=== PATIENT | female | born 1990 | race Caucasian/White ===

== ENCOUNTER 2016-05-04 03:47 | Inpatient (IN) | payer BC ==
[~2016-05-04 03:47] MED LIST: BUPIVACAINE (PF) 0.25% 30 ML VIAL ONE; SODIUM CHLORIDE 0.9% 100 ML BAG ONE; fentaNYL (PF) 50 MCG/ML 5 ML AMP ONE
[2016-05-04] MEDS ORDERED: TERBUTALINE 1 MG/ML VIAL SQ PRN (05:05)
[2016-05-04] MEDS ORDERED: CARBOPROST TROMETHAMINE 250 MCG/ML 1 ML AMP IM PRN (05:05)
[2016-05-04] MEDS ORDERED: METHYLERGONOVINE 0.2 MG/ML 1 ML AMP IM PRN (05:05)
[2016-05-04] MEDS ORDERED: OXYTOCIN 10 UNIT/ML 1 ML VIAL IM PRN (05:05)
[2016-05-04] MEDS ORDERED: LIDOCAINE 1% (PF) 10 MG/ML (30 ML SDV) SQ PRN (05:05)
[2016-05-04 05:29] VITALS: BMI 25.9
[2016-05-04 05:36] LABS: Basophils % (A) 0 %; CH 32.3; CHCM 35.3; Eosinophils % (A) 0 %; HCT 44.2 % (34.0-46.0); HDW 2.74; Luc # (Auto) 0.15; Luc % (Auto) 1; Lymphocytes # (A) 1.7 k/uL (1.0-4.8); Lymphocytes % (A) 15 %; MCH 31.2 pg (25.0-35.0); MCHC 33.9 g/dL (31.0-37.0); MCV 91.9 fL (80.0-100.0); Mean Platelet Volume 8.2; Monocytes # (A) 0.4 k/uL (0-1.0); Monocytes % (A) 4 %; Neutrophils % (A) 79 %; RBC 4.81 m/uL (3.80-5.40); RDW 13.5 % (11.5-15.5); WBC 11.3 k/uL (3.8-10.6); WBC (Perox) 11.76
[2016-05-04] MEDS: LACTATED RINGERS 1,000 ML IV SCH ×3 (05:36→10:00)
[2016-05-04] MEDS ORDERED: BUTORPHANOL 1 MG/ML 1 ML VIAL IV PRN (05:47)
--- NOTE | 2016-05-04 07:48 | P.HPOB ---
History of Present Illness H&P Date: 05/04/16 Chief Complaint: Strong regular uterine contractions This is a 25-year-old white female 1 para 0 EDC 05/12/2015 at 38-6/7 weeks' gestation. Patient presented through the night with strong regular uterine contractions, cervical change was noted while observing in the triage area. She denies fluid leakage or vaginal bleeding. Fetus is been active throughout the . She denies headache, visual changes or right upper quadrant pain. Past obstetric history: Blood type O positive, rubella status immune. VDRL testing, urine culture, gonorrhea Chlamydia cultures, hepatitis B surface antigen, HIV testing all negative. Group B strep cultures negative. One-hour Glucola 97. Past medical history is essentially negative. Past surgical history is significant for exploratory laparotomy, appendectomy. Current medications vitamins daily. ALLERGIES penicillin, patient reports a strong family history of ALLERGY only, Bactrim DS to which patient reports hives. Family history significant for adenocarcinoma in her maternal aunt, breast cancer in a maternal grandmother, type 1 diabetes in her cousin. 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 She denies alcohol or drug use. On exam this is a pleasant white female, 5 foot 5 inches, 156 pounds, vital signs are stable and the patient is afebrile. The general physical exam is within normal limits. The chest is clear in all matthews. The extremities reveal no edema. Cervix is 6 cm dilated, 80% effaced, -1 station, vertex presentation. Artificial amniorrhexis reveals clear fluid. heart rate is consistent with reactive NST. Impression: 6/7 weeks intrauterine , active spontaneous labor. All signs reassuring. Plan: Close maternal and surveillance. Epidural has been placed per the patient's request. Consider oxytocin augmentation pending progress. Anticipate normal spontaneous vaginal delivery. Review of Systems Negative except as in HPI Past Medical History Additional Past Medical History / Comment(s): kidney stones, endometriosis History of Any Multi-Drug Resistant Organisms: None Reported Past Surgical History: Appendectomy Additional Past Surgical History / Comment(s): laproscopy Past Anesthesia/Blood Transfusion Reactions: No Reported Reaction Past Psychological History: No Psychological Hx Reported Smoking Status: Never smoker Past Alcohol Use History: Occasional Past Drug Use History: None Reported - Past Family History Father Family Medical History: No Reported History Medications and Allergies Home Medications Medication Instructions Recorded Confirmed Type #79/Iron Asp Gly/FA#1 1 each PO DAILY 05/04/16 05/04/16 History [Prenate Elite Tablet] Allergies Allergy/AdvReac Type Severity Reaction Status Date / Time Penicillins Allergy Rash/Hives Verified 05/04/16 04:01 sulfamethoxazole Allergy Rash/Hives Verified 05/04/16 04:01 [From Bactrim] trimethoprim [From Bactrim] Allergy Rash/Hives Verified 05/04/16 04:01 Exam - Vital Signs Vital signs: Vital Signs Temp Pulse Resp BP Pulse Ox 05/04/16 05:21 96.7 F L 85 18 131/86 97 Intake and Output 05/03/16 05/04/16 05/04/16 22:59 06:59 14:59 Intake Total 1000 Balance 1000 Intake: IV 1000 Lactated Ringers 1,000 ml 1000 @ 125 mls/hr IV .Q8H CHARMAINE Rx#:[id number] Other: # Voids 2 Weight 70.76 kg See my dictation, please Results Result Diagrams: 05/04/16 05:28 Abnormal Lab Results - Last 24 Hours (Table) 05/04/16 Range/Units 05:28 WBC 11.3 H (3.8-10.6) k/uL Neutrophils # 9.0 H (1.3-7.7) k/uL Assessment and Plan Plan: Close maternal and surveillance. Epidural has been placed per the patient 's wishes. Consider oxytocin augmentation pending progress. Anticipate normal spontaneous vaginal delivery. Time with Patient: Less than 30
[2016-05-04] MEDS ORDERED: OXYTOCIN 30 UNITS/500 ML NS 30 UNIT in SALINE 1 500ML.BAG IV SCH (08:45)
[2016-05-04] MEDS ORDERED: BUPIVACAINE (PF) 0.25% 25 ML, fentaNYL (PF) 200 MCG in SODIUM CHLORIDE 0.9% 71 ML EPIDURAL ONE (10:54)
[2016-05-04] MEDS ORDERED: diphenhydrAMINE ELIXIR 25 MG/10 ML CUP PO PRN (11:10)
[2016-05-04] MEDS ORDERED: HYDROCORTISONE 2.5% RECTAL CREAM 30 GM TUBE RECTAL PRN (11:10)
[2016-05-04] MEDS ORDERED: BENZOCAINE/MENTHOL SPRAY 1 GM/SPRAY AEROSOL TOPICAL PRN (11:10)
[2016-05-04] MEDS ORDERED: WITCH HAZEL 1 EACH MED..PAD TOPICAL PRN (11:10)
[2016-05-04] MEDS ORDERED: diphenhydrAMINE 50 MG CAP PO PRN (11:10)
[2016-05-04] MEDS ORDERED: ZOLPIDEM 5 MG TAB PO PRN (11:10)
[2016-05-04] MEDS ORDERED: ACETAMINOPHEN TAB 325 MG TAB PO PRN (11:10)
[2016-05-04] MEDS ORDERED: Acetaminophen-Codeine 300-30mg TAB PO PRN (11:10)
[2016-05-04] MEDS ORDERED: diphenhydrAMINE 25 MG CAP PO PRN (11:10)
[2016-05-04] MEDS ORDERED: IBUPROFEN 600 MG TAB PO PRN (11:10)
[2016-05-04] MEDS ORDERED: SIMETHICONE 80 MG CHEWABLE PO PRN (11:10)
[2016-05-04] MEDS ORDERED: LANOLIN CREAM 5 GM TUBE TOPICAL PRN (11:10)
[2016-05-04] MEDS ORDERED: diphenhydrAMINE 50 MG/ML 1 ML VIAL IVP PRN ×2 (11:10)
--- NOTE | 2016-05-04 11:10 | P.PROBDLV ---
Vaginal Delivery Note - . Vaginal Delivery Note: This is a 25-year-old white female 1 para 0 EDC 05/12/2015 at 38-6/7 weeks' gestation. Patient presented in early spontaneous labor. Artificial amniorrhexis revealed clear fluid. Epidural was placed per her request. Please see my dictated history and physical for details. Patient became completely dilated at 1020 hrs. and began the second stage of labor at that time. Deep variable decelerations were noted. Oxygen was placed per facemask. IV fluid increase. Maternal position changes incorporating. Good progress in the second stage was noted. Ultimately the perineal body was prepped and draped in usual sterile fashion. A left medial lateral episiotomy was given. 's head delivered right occiput posterior. There was a tight nuchal cord 1 that was reduced. The oropharynx, nasopharynx, and external nares were all bulb suctioned on the perineal body. Patient was officially delivered of a liveborn male at 1059 hrs. The umbilical cord was doubly clamped and ligated, he was handed to waiting nurses for evaluation where scores of 8 and 9 at one and 5 minutes respectively were given. Placenta delivered spontaneously, it was inspected and noted to be intact, slightly bloody down the maternal surface, at 2000 hours. Uterus was massaged. Inspection of the cervix, vagina, perineum, and periurethral areas revealed no other extensions. The left medial lateral episiotomy was repaired in the usual fashion using 3-0 Vicryl suture. Excellent reapproximation was noted. Fundus is firm and in the midline, symmetric and 18 week size upon completion of delivery. All sponge needle and enhancement counts are correct. Estimated blood loss 300 mL's. Patient and her are requesting circumcision further son.
[2016-05-04] MEDS: OXYTOCIN 30 UNITS/500 ML NS 30 UNIT in SALINE 1 500ML.BAG IV SCH ×2 (12:06→22:24)
[2016-05-04] MEDS: SENNOSIDES-DOCUSATE SODIUM 1 EACH TAB PO SCH (20:47)
--- NOTE | 2016-05-05 08:01 | P.DS ---
Providers Date of admission: 05/04/16 05:06 Expected date of discharge: 05/05/16 Attending physician: Meredith Uribe Primary care physician: Stated None Hospital Course: This is a 19 year old white female 1 para 0 EDC 05/12/2015 at 38-6/7 weeks' gestation. Patient presented in active spontaneous labor. Epidural was placed per her request. She went on to deliver a liveborn male with scores of 8 and 9 at one and 5 minutes respectively. Infant was in the right occiput posterior position. Deep variable decelerations were noted in the second stage with excellent overall variability. For that reason, a left medial lateral episiotomy was performed, and repaired without issue. weighed 3310 g or 7 lbs. 5 oz. Please see my dictated delivery note for details. This morning the patient is doing very well. She is voiding, ambulating and passing flatus without difficulty. Vital signs are stable and she is afebrile. Fundus is firm and in the midline, symmetric and 18 week size. Extremities are negative. Breasts are not engorged. Breast-feeding is going well. [place] circumcision has been performed without issue. Patient is being discharged home in good condition. She will follow-up with me in the office in 6 weeks. I reminded her no intercourse, tampons or douching. She will continue taking her vitamin daily. She will use over-the- counter ibuprofen products, 200 mg pills, 600 mg every 6 hours as needed for pain. We have briefly reviewed her options for contraception. I have reminded her to call me with any fevers shakes or chills, foul smelling or copious lochia , with the passage of large blood clots, with any pain not alleviated by over- the-counter products, or indeed with any concerns. Patient Condition at Discharge: Good Plan - Discharge Summary Discharge Medication List #79/Iron Asp Gly/FA#1 [Prenate Elite Tablet] 1 each PO DAILY 05/04/16 [ History] Follow up Appointment(s)/Referral(s): Meredith Uribe MD [STAFF PHYSICIAN] - 6 Weeks Discharge Disposition: HOME SELF-CARE
[2016-05-05] MEDS: SENNOSIDES-DOCUSATE SODIUM 1 EACH TAB PO SCH (08:22)
[2016-05-05 10:36] VITALS: BP 115/74; PULSE 81; RESP 16; TEMP 97.7
== END 2016-05-05 14:35 | disposition home or self-care (01) | DRG 775 ==
LOC: FBPOP 03:47 → 4FBP 05:06
PROVIDERS: ADMIT Obstetrics & Gynecology; ATTEND Obstetrics & Gynecology
PROC: 10E0XZZ Delivery of Products of Conception, External Approach (ICD-10-PCS; principal; 2016-05-04)
PROC: 0W8NXZZ Division of Female Perineum, External Approach (ICD-10-PCS; 2016-05-04)
DX: O69.1XX0 Labor and delivery complicated by cord around neck, with compression, not applicable or unspecified (principal); O76 Abnormality in fetal heart rate and rhythm complicating labor and delivery; Z37.0 Single live birth; Z87.442 Personal history of urinary calculi; Z88.0 Allergy status to penicillin; Z79.899 Other long term (current) drug therapy
CPT/HCPCS: 59025; 85025; 88307; 99213

== ENCOUNTER 2018-11-08 17:58 | Inpatient (IN) | payer BC ==
[2018-11-08] MEDS ORDERED: WITCH HAZEL 1 EACH MED..PAD TOPICAL PRN (18:19)
[2018-11-08] MEDS ORDERED: ZOLPIDEM 5 MG TAB PO PRN (18:19)
[2018-11-08] MEDS ORDERED: diphenhydrAMINE 25 MG CAP PO PRN (18:19)
[2018-11-08] MEDS ORDERED: SIMETHICONE 80 MG CHEWABLE PO PRN (18:19)
[2018-11-08] MEDS ORDERED: ACETAMINOPHEN TAB 325 MG TAB PO PRN (18:19)
[2018-11-08] MEDS ORDERED: HYDROcodone/APAP 7.5-325MG 1 EACH TAB PO PRN (18:19)
[2018-11-08] MEDS ORDERED: LANOLIN CREAM 5 GM TUBE TOPICAL PRN (18:19)
[2018-11-08] MEDS ORDERED: diphenhydrAMINE 50 MG CAP PO PRN (18:19)
[2018-11-08] MEDS ORDERED: BENZOCAINE/MENTHOL SPRAY 1 GM/SPRAY AEROSOL TOPICAL PRN (18:19)
[2018-11-08] MEDS ORDERED: HYDROCORTISONE 2.5% RECTAL CREAM 30 GM TUBE RECTAL PRN (18:19)
[2018-11-08] MEDS ORDERED: diphenhydrAMINE 50 MG/ML 1 ML VIAL IVP PRN ×2 (18:19)
--- NOTE | 2018-11-08 18:25 | P.HPOB ---
History of Present Illness H&P Date: 11/08/18 Chief Complaint: 38-5/7 weeks, active labor, rupture of membranes The patient is a 28-year-old 2 para 1001 admitted at 38-5/7 weeks by good dating parameters. She is admitted to triage after transport from home by EMS in active labor with spontaneous rupture of membranes and found at that time to have dilation to anterior lip. I was called at that time and arrived after the infant had been delivered. Her has been entirely uncomplicated and group B strep status is negative. Obstetrical history: 2 para 1001 with 1 previous term vaginal delivery without complications. Current statistics are listed in history of present illness. EDC of 11/17/2018 was established by early ultrasound. Laboratory workup demonstrates a blood type of O+ with a negative antibody screen. Rubella status is immune. Remainder of the laboratory workup was within normal limits. One hour Glucola was normal and group B strep status is negative. Gynecologic history: Unremarkable with no history of any infections to include STDs. Review of Systems Review of systems is confined to history of present illness. Past Medical History Additional Past Medical History / Comment(s): kidney stones, endometriosis History of Any Multi-Drug Resistant Organisms: None Reported Past Surgical History: Appendectomy Additional Past Surgical History / Comment(s): laproscopy Past Anesthesia/Blood Transfusion Reactions: No Reported Reaction Past Psychological History: No Psychological Hx Reported Smoking Status: Never smoker Past Alcohol Use History: Occasional Past Drug Use History: None Reported - Past Family History Father Family Medical History: No Reported History Medications and Allergies Home Medications Medication Instructions Recorded Confirmed Type 114/Iron A-G/Folate 1 1 each PO DAILY 05/04/16 05/04/16 History [Prenate Elite Tablet] Allergies Allergy/AdvReac Type Severity Reaction Status Date / Time Penicillins Allergy Rash/Hives Verified 05/04/16 04:01 sulfamethoxazole Allergy Rash/Hives Verified 05/04/16 04:01 [From Bactrim] trimethoprim [From Bactrim] Allergy Rash/Hives Verified 05/04/16 04:01 Exam In general, this is a well-developed, well-nourished white female in no current distress though the placenta was undelivered. Her heart has a regular rhythm and rate without murmur. Her lungs are clear to auscultation bilaterally in all matthews. Her abdomen is nondistended with palpable fundus below the umbilicus, normal active bowel sounds, is soft, nontender, and without any palpable masses aside from the uterine fundus as noted above. Her extremities without any cyanosis, clubbing, or edema and are nontender to palpation bilaterally. Pelvic examination is deferred as the placenta as yet to be delivered. Assessment and Plan (1) Spontaneous rupture of amniotic membranes Current Visit: Yes Status: Acute Code(s): QAW7709 - SNOMED Code(s): 761213484 (2) Active labor at term Current Visit: Yes Status: Acute Code(s): MIT6246 - SNOMED Code(s): 44934078 Plan: The patient will be admitted from triage for routine care.
--- NOTE | 2018-11-08 18:27 | P.PROBDLV ---
Vaginal Delivery Note - . Vaginal Delivery Note: The patient is a 28-year-old 2 para 1001 admitted at 38-5/7 weeks by good dating parameters. She is admitted in active labor and dilated to an anterior lip in triage with documented spontaneous rupture of membranes. Her has been uncomplicated and group B strep status is negative. I was called upon admission to triage and, upon arrival, the had been delivered by the nursing staff in a precipitous fashion. She delivered by precipitous normal spontaneous vaginal delivery of viable 7 lbs. 1 oz. baby girl with Apgars of 9 at 1 minute and 9 at 5 minutes. The placenta was delivered spontaneously, intact, and grossly normal with a grossly normal, relatively centrally inserted three-vessel cord. There were no lacerations of the perineum, vagina, or cervix. All sponge, instrument, and needle counts were correct. Estimated blood loss appeared to be approximately 200 mL. There were no complications aside from the precipitous nature of the delivery in the absence of a physician. Both mother and infant are resting comfortably in recovery.
[2018-11-08] MEDS ORDERED: OXYTOCIN 20 UNITS/1000 ML NS 1,000 ML IV SCH (18:30)
[2018-11-08 19:24] VITALS: BMI 29.1
[2018-11-08] MEDS: IBUPROFEN 600 MG TAB PO PRN (19:47)
[2018-11-08] MEDS: SENNOSIDES-DOCUSATE SODIUM 1 EACH TAB PO SCH (20:41)
[2018-11-09] MEDS: IBUPROFEN 600 MG TAB PO PRN ×2 (07:02→16:00)
[2018-11-09] MEDS: SENNOSIDES-DOCUSATE SODIUM 1 EACH TAB PO SCH (07:03)
[2018-11-09] MEDS: HYDROcodone/APAP 5-325MG 1 EACH TAB PO PRN ×2 (08:26→14:01)
--- NOTE | 2018-11-09 08:56 | P.DS ---
Providers Date of admission: 11/08/18 17:58 Expected date of discharge: 11/09/18 Attending physician: Shiraz Guerra Primary care physician: Stated None - Discharge Diagnosis(es) (1) Spontaneous rupture of amniotic membranes Current Visit: Yes Status: Acute (2) Active labor at term Current Visit: Yes Status: Acute (3) Precipitous delivery Current Visit: Yes Status: Acute Hospital Course: The patient is a 28-year-old 2 para 1001 admitted at 38-5/7 weeks by good dating parameters. She is admitted to triage in active labor and dilated to anterior lip with spontaneous rupture of membranes. The patient then had a normal spontaneous vaginal delivery of a viable 7 lbs. 1 oz. baby girl with Apgars of 9 at 1 minute and 9 at 5 minutes while I was en route to the hospital. The delivery, aside from its precipitous nature, was otherwise uncomplicated. The patient's course was uncomplicated and vital signs were stable throughout. She was deemed stable for discharge on day #1 was disch arged home to follow-up in the office in 6 weeks' time routinely. Discharge instructions included calling for any significantly increased bleeding or foul- smelling lochia, significantly increased fever abdominal pain, perineal complaints, breast complaints, or anything else that concerned her. She is additionally instructed to have nothing in the vagina for at least 6 weeks time to include intercourse. She understood her instructions and agrees to follow up as noted above. Discharge medications included continued vitamins as she has opted to breast-feed. She otherwise was to use [id number] analgesic pain medications as needed. Maternal blood type is O+ and rubella status is immune. Procedures: #1. Precipitous normal spontaneous vaginal delivery Patient Condition at Discharge: Good Plan - Discharge Summary Discharge Rx Participant: No New Discharge Prescriptions: No Action 114/Iron A-G/Folate 1 [Prenate Elite Tablet] 1 each PO DAILY Discharge Medication List 114/Iron A-G/Folate 1 [Prenate Elite Tablet] 1 each PO DAILY 05/04/16 [History] Follow up Appointment(s)/Referral(s): Meredith Uribe MD [STAFF PHYSICIAN] - 6 Weeks Discharge Disposition: HOME SELF-CARE
[2018-11-09 16:12] VITALS: BP 120/72; PULSE 79; RESP 18; TEMP 98
== END 2018-11-09 19:00 | disposition home or self-care (01) | DRG 807 ==
LOC: 4FBP 17:58
PROVIDERS: ADMIT Obstetrics & Gynecology; ATTEND Obstetrics & Gynecology
PROC: 10E0XZZ Delivery of Products of Conception, External Approach (ICD-10-PCS; principal; 2018-11-08)
DX: O62.3 Precipitate labor (principal); Z37.0 Single live birth; Z3A.38 38 weeks gestation of pregnancy; Z87.442 Personal history of urinary calculi; Z88.0 Allergy status to penicillin; Z88.2 Allergy status to sulfonamides

== ENCOUNTER → 2020-04-15 | Outpatient (CLI) | payer BC, OTHER ==
[2020-04-15 15:45] LABS: Basophils % (A) 1 %; Eosinophils # (A) 0.2 k/uL (0-0.7); Eosinophils % (A) 2 %; HGB 14.2 gm/dL (11.4-16.0); Lymphocytes # (A) 2.4 k/uL (1.0-4.8); Lymphocytes % (A) 36 %; MCH 31.6 pg (25.0-35.0); MCHC 34.6 g/dL (31.0-37.0); MCV 91.4 fL (80.0-100.0); Mean Platelet Volume 7.1; Monocytes # (A) 0.4 k/uL (0-1.0); Monocytes % (A) 6 %; Neutrophils # (A) 3.7 k/uL (1.3-7.7); Neutrophils % (A) 54 %; Platelet Count 226 k/uL (150-450); RBC 4.48 m/uL (3.80-5.40); RDW 11.7 % (11.5-15.5); WBC 6.8 k/uL (3.8-10.6)
== END | disposition home or self-care (01) ==
LOC: LABPAT 15:07
PROVIDERS: ATTEND Obstetrics & Gynecology
DX: Z01.818 Encounter for other preprocedural examination (principal)
CPT/HCPCS: 36415; 85025

== ENCOUNTER 2020-05-05 08:38 | Day surgery (SDC) | payer BC, OTHER ==
[2020-04-30 14:19] VITALS: BMI 27.4
[~2020-05-05 08:38] MED LIST changes: -BUPIVACAINE (PF) 0.25% 30 ML VIAL ONE; +DEXAMETHASONE SOD PHOSPHATE 4 MG/ML 1 ML VIAL IV ONE; +LACTATED RINGERS 1,000 ML IV SCH; +MIDAZOLAM 2 MG/2 ML VIAL IV PRN; +ONDANSETRON 4 MG/2 ML VIAL IVP ONE; +Pre Op ABX Message 1 EACH MISC MISCELLANE ONE; +SCOPOLAMINE 1.5MG/72HR PATCH TRANSDERM ONE; -SODIUM CHLORIDE 0.9% 100 ML BAG ONE; -fentaNYL (PF) 50 MCG/ML 5 ML AMP ONE
[2020-05-05] MEDS ORDERED: LIDOCAINE 1% (10MG/ML) FOR IV START INTRADERMA ONE (09:11)
[2020-05-05] MEDS ORDERED: NEOSTIGMINE 1 MG/ML 10 ML VIAL ONE (10:10)
[2020-05-05] MEDS ORDERED: SUCCINYLCHOLINE CHLORIDE 100 MG/5 ML SYR IV ONE (10:10)
[2020-05-05] MEDS ORDERED: LIDOCAINE 1% INJ 10MG/ML (20 ML MDV) ONE (10:10)
[2020-05-05] MEDS ORDERED: KETOROLAC 15 MG/ML 1 ML VIAL ONE (10:10)
[2020-05-05] MEDS ORDERED: PROPOFOL 10 MG/ML 20 ML VIAL IV ONE (10:10)
[2020-05-05] MEDS ORDERED: diphenhydrAMINE 50 MG/ML 1 ML VIAL ONE (10:10)
[2020-05-05] MEDS ORDERED: GLYCOPYRROLATE 0.2 MG/ML 2 ML VIAL ONE (10:10)
[2020-05-05] MEDS ORDERED: ROCURONIUM 10 MG/ML (10 ML VIAL) IV ONE (10:10)
[2020-05-05] MEDS ORDERED: fentaNYL (PF) 50 MCG/ML 2 ML AMP ONE (10:10)
[2020-05-05] MEDS ORDERED: MIDAZOLAM 2 MG/2 ML VIAL ONE (10:10)
[2020-05-05] MEDS ORDERED: BUPIVACAINE (PF) 0.25% 30 ML VIAL SQ ONE ×2 (10:49)
--- NOTE | 2020-05-05 11:01 | P.OP ---
Date of Procedure: 05/05/20 Preoperative Diagnosis: Undesired fertility Postoperative Diagnosis: Same Procedure(s) Performed: Laparoscopic tubal ligation with Filshie clips Anesthesia: BETZAIDA Surgeon: Meredith Uribe Estimated Blood Loss (ml): 20 IV fluids (ml): 700 Urine output (ml): 300 Pathology: none sent Condition: stable Description of Procedure: Patient is brought to the operating suite where a general anesthetic is administered without difficulty. She's placed in the dorsal lithotomy position. The appropriate timeout is performed to assure proper patient and procedural identification. Urine hCG is negative. The cervix, vagina perineal body and abdomen are all prepped and draped in usual sterile fashion. Bladder is drained for approximately 300 mL of clear yellow urine. Scalpel is used to make an incision below the umbilicus and the varies needle is placed. Patient is checked with hanging drop technique. Abdomen is insufflated under low filling pressures of approximate 5-7 mmHg for a total of 3.5 L of CO2 gas. Veress needle was removed. The laparoscope was placed in the entry is noted to be atraumatic. A second incision is made suprapubically under direct visualization. The second trocar is placed. Uterus is now placed and anteverted lateral traction and the patient is placed in the slight Trendelenburg position. The right fallopian tube is visualized in its entirety to the fimbriated end. A Filshie clip is placed in the isthmic portion of the tube with care to traverse the entire diameter of the tube into the mesal salpinx. The same procedure is carried out contralaterally, again the fimbriated and is identified in the clip is placed in the isthmic portion, completely through the tube into the mesal salpinx. Both ovaries appear normal. Uterus appears normal. No evidence of endometriosis or adhesions. Prior to removal, the laparoscope is brought to the upper abdomen to evaluate the anatomy where a small bleeder is noted superficially in the omentum. This is touched with electrocautery for immediate hemostasis. The area is irrigated and monitored, no further bleeding is noted. CO2 gas was allowed to diffuse. The fascial incisions are inspected up upon removing the trochars and are clean and dry. 4-0 undyed Monocryl is used in a subcutaneous stitch to close the 2 small incisions. They are injected with quarter percent Marcaine without epinephrine to aid in analgesia, 8 mL total used. Steri-Strips and Mastisol are applied to the wound. Instrumentation is removed from the vagina, cervix is clean and dry. Patient is given Toradol prior to leaving the operative suite. She is brought back to the recovery room in excellent condition with a blood pressure 112/71, pulse 52, 100% O2 saturation. She will follow-up with me in the office in 2 weeks.
[2020-05-05] MEDS: HYDROmorphone 0.5 MG/0.5 ML SYRINGE IVP PRN ×4 (11:14→11:47)
[2020-05-05 11:19] VITALS: TEMP 97
[2020-05-05] MEDS ORDERED: LACTATED RINGERS 1,000 ML IV ONE ×2 (11:33)
[2020-05-05] MEDS ORDERED: ONDANSETRON 4 MG/2 ML VIAL IVP ONE (11:53)
[2020-05-05] MEDS ORDERED: MEPERIDINE 50 MG/ML SYRINGE IVP ONE (12:20)
[2020-05-05 12:57] VITALS: RESP 18
[2020-05-05 13:10] VITALS: BP 132/78; PULSE 78
== END 2020-05-05 13:24 | disposition home or self-care (01) ==
LOC: OR 08:38
PROVIDERS: ATTEND Obstetrics & Gynecology
DX: Z30.2 Encounter for sterilization (principal); Z87.42 Personal history of other diseases of the female genital tract; Z87.442 Personal history of urinary calculi; Z90.89 Acquired absence of other organs; Z98.890 Other specified postprocedural states; Z97.5 Presence of (intrauterine) contraceptive device; Z88.0 Allergy status to penicillin; Z88.2 Allergy status to sulfonamides; Z80.3 Family history of malignant neoplasm of breast; Z83.3 Family history of diabetes mellitus; Z80.1 Family history of malignant neoplasm of trachea, bronchus and lung; Z80.8 Family history of malignant neoplasm of other organs or systems
CPT/HCPCS: 81025; 58671; J2250; J1200; J1100; J2710; J2175; J2405; J2001; J3010; J1885; J0330; J2704; J1170

== ENCOUNTER → 2022-07-12 | Outpatient (CLI) | payer BC ==
--- NOTE | 2022-07-12 09:11 | USB ---
Reason for Exam: Clinical finding. Patient History: Menarche at age 13. First Full-Term at age 25. Hormonal Contraceptives, starting at age 15 for 15 years. Maternal grandmother had breast cancer at or over age 50. Technique: Method: Targeted. Findings: The upper outer quadrant of the right breast, the axilla of the right breast and the retroareolar of the right breast were scanned. No solid or cystic masses are identified. There is dense parenchymal tissue by ultrasound present. No abnormality to correspond to mammographic findings.. Overall Assessment: Benign, BI-RAD 2 Management: Diagnostic Mammogram of the right breast in 6 months. A clinical breast exam by your physician is recommended on an annual basis and results should be correlated with mammographic findings. This exam should not preclude additional follow-up of suspicious palpable abnormalities. Results were given to the patient verbally at the time of exam. Electronically signed and approved by: Fredy Richardson D.O. Radiologis
--- NOTE | 2022-07-12 15:03 | MM ---
Reason for Exam: Clinical finding. Baseline mammogram. Patient History: Menarche at age 13. First Full-Term at age 25. Hormonal Contraceptives, starting at age 15 for 15 years. Maternal grandmother had breast cancer at or over age 50. Last menstrual period: 06/24/2022 Prior Study Comparison: Patient's first Mammogram. No prior studies available for comparison. Tissue Density: The breast tissue is extremely dense which could obscure a lesion on mammography. Findings: Analyzed By CAD. There is some focal asymmetry and irregularity in the upper-outer aspect right breast. Under compression this area appears persistent. Additional workup with ultrasound is recommended. No suspicious groups of microcalcifications, spiculated or lobular masses, architectural distortion or other secondary signs of malignancy are mammographically apparent. Overall Assessment: Incomplete: need additional imaging evaluation, BI-RAD 0 Management: Diagnostic Breast Ultrasound of the right breast. A negative mammogram report should not preclude additional follow up of suspicious palpable abnormalities. Patient should continue monthly self breast exam. A clinical breast exam by your physician is recommended on an annual basis and results should be correlated with mammographic findings. Electronically signed and approved by: Fredy Richardson D.O. Radiologis
== END | disposition home or self-care (01) ==
LOC: RADMAMWWP 08:05
PROVIDERS: ATTEND Obstetrics & Gynecology
DX: R92.8 Other abnormal and inconclusive findings on diagnostic imaging of breast (principal); N64.4 Mastodynia; Z80.3 Family history of malignant neoplasm of breast
CPT/HCPCS: 77062; 77066